=== PATIENT | female | born 1995 | race Caucasian/White ===

== ENCOUNTER 2020-05-06 21:13 | Outpatient (CLI) | payer BC ==
[2020-05-06 21:22] VITALS: BP 125/84; PULSE 82; RESP 16; TEMP 96.9
[2020-05-06 21:32] LABS: Appearance,Urine Clear (Clear); Bacteria,Urine Occasional /hpf; Bilirubin,Urine Negative (Negative); Blood,Urine Small (Negative); Color,Urine Colorless; Glucose,Urine (UA) Negative (Negative); Ketones,Urine Negative (Negative); Leukocyte Esterase,Urine Negative (Negative); Nitrite,Urine Negative (Negative); Protein,Urine Negative (Negative); RBC,Urine <1 /hpf (0-5); Specific Gravity,Urine 1.004 (1.001-1.035); Urobilinogen,Urine <2.0 mg/dL (<2.0); WBC,Urine 1 /hpf (0-5)
== END 2020-05-06 21:55 | disposition home or self-care (01) ==
LOC: FBPOP 21:13
PROVIDERS: ATTEND Obstetrics & Gynecology
DX: O99.891 Other specified diseases and conditions complicating pregnancy (principal); Z3A.21 21 weeks gestation of pregnancy
CPT/HCPCS: 81001; 99213

== ENCOUNTER 2020-09-08 06:00 | Inpatient (IN) | payer BC ==
[2020-09-08] MEDS ORDERED: DINOPROSTONE 10 MG INSERT.ER VAGINAL ONE (16:22)
[2020-09-08] MEDS ORDERED: BUTORPHANOL 1 MG/ML 1 ML VIAL IV PRN (16:22)
--- NOTE | 2020-09-08 17:12 | P.HPOB ---
History of Present Illness H&P Date: 09/08/20 Chief Complaint: Requested induction of labor. This patient is a pleasant 24-year-old 1 para 0 female estimated date of confinement 09/10/2020 estimated gestational age 39-5/7 weeks who presents to labor and delivery for requested induction of labor. Patient's care has been uncomplicated, with the exception of COVID at 8 weeks . Patient's cervix is unfavorable and therefore proceed with Cervidil placement. Review of Systems Genitourinary: Reports Menstruation: Reports amenorrhea Past Medical History Past Medical History: No Reported History Additional Past Medical History / Comment(s): IBS History of Any Multi-Drug Resistant Organisms: None Reported Past Surgical History: No Surgical Hx Reported Additional Past Surgical History / Comment(s): [place] teeth Past Anesthesia/Blood Transfusion Reactions: No Reported Reaction Past Psychological History: No Psychological Hx Reported Smoking Status: Never smoker Past Drug Use History: None Reported - Past Family History Mother Family Medical History: No Reported History Medications and Allergies Home Medications Medication Instructions Recorded Confirmed Type Pnv No.95/Ferrous Fum/Folic AC 1 tab PO DAILY 05/06/20 09/08/20 History [ Multivitamin Tablet] Allergies Allergy/AdvReac Type Severity Reaction Status Date / Time No Known Allergies Allergy Verified 09/08/20 16:22 Exam Vital Signs Temp Pulse Resp BP Pulse Ox 09/08/20 16:47 96.2 F L 91 16 137/93 100 09/08/20 16:22 96.2 F L 91 16 137/93 100 Intake and Output 09/08/20 09/08/20 09/08/20 06:59 14:59 22:59 Other: Weight 83.007 kg - OBG Physical Exam Abdomen: bowel sounds normal, no diffuse tenderness, no bruit present, no guarding noted, no hepatomegaly, no splenomegaly, no mass Vulva: both: normal Vagina: normal moisture, no discharge Cervix: no lesion (Cervix is fingertip and 50% effaced -1 station), no discharge Uterus: enlarged (Fundal height 38 cm) Results blood work shows she is O positive, rubella immune, RPR nonreactive, HIV is nonreactive, hepatitis B is negative, Glucola was normal, group B strep was negative, anatomy ultrasound was normal. Most recent growth ultrasound showed the infant to have abnormal growth. Assessment and Plan Assessment: This is a pleasant 24-year-old 1 para 0 female 39-5/7 weeks gestation admitted to labor and delivery for requested induction of labor. Plan is two- stage induction of labor and anticipate vaginal delivery. (1) 39 weeks gestation of Current Visit: Yes Status: Acute Code(s): Z3A.39 - 39 WEEKS GESTATION OF SNOMED Code(s): 24154566 (2) Elective induction of labor planned Current Visit: Yes Status: Acute Code(s): ACE2692 - SNOMED Code(s): 743030131
[2020-09-09] MEDS ORDERED: OXYTOCIN 30 UNITS/500 ML NS 30 UNIT in SALINE 1 500ML.BAG IV SCH ×2 (04:46→14:35)
[2020-09-09] MEDS ORDERED: CARBOPROST TROMETHAMINE 250 MCG/ML 1 ML AMP IM PRN (04:46)
[2020-09-09] MEDS ORDERED: LIDOCAINE 0.5% (PF) 5 MG/ML (50 ML SDV) SQ PRN (04:46)
[2020-09-09] MEDS ORDERED: METHYLERGONOVINE 0.2 MG/ML 1 ML AMP IM PRN (04:46)
[2020-09-09] MEDS ORDERED: TERBUTALINE 1 MG/ML VIAL SQ PRN (04:46)
[2020-09-09] MEDS ORDERED: OXYTOCIN 10 UNIT/ML 1 ML VIAL IM PRN (04:46)
[2020-09-09] MEDS: LACTATED RINGERS 1,000 ML IV SCH ×2 (05:02→20:39)
[2020-09-09 05:35] LABS: Basophils # (A) 0.1 k/uL (0-0.2); Basophils % (A) 0 %; Eosinophils # (A) 0.2 k/uL (0-0.7); Eosinophils % (A) 1 %; HCT 40.2 % (34.0-46.0); Lymphocytes # (A) 4.5 k/uL (1.0-4.8); Lymphocytes % (A) 29 %; MCH 32.5 pg (25.0-35.0); MCHC 34.8 g/dL (31.0-37.0); MCV 93.3 fL (80.0-100.0); Monocytes # (A) 0.6 k/uL (0-1.0); Monocytes % (A) 4 %; Neutrophils # (A) 10.3 k/uL (1.3-7.7); Neutrophils % (A) 65 %; Platelet Count 328 k/uL (150-450); RBC 4.31 m/uL (3.80-5.40); RDW 12.6 % (11.5-15.5); WBC 15.9 k/uL (3.8-10.6)
[2020-09-09 08:37] LABS: Glucose,Whole Blood 83 mg/dL (75-99)
[2020-09-09] MEDS ORDERED: ROPIVACAINE 5MG/ML 20ML VIAL ONE (09:34)
[2020-09-09] MEDS ORDERED: SODIUM CHLORIDE 0.9% 100 ML BAG ONE (09:34)
[2020-09-09] MEDS ORDERED: fentaNYL (PF) 50 MCG/ML 5 ML AMP ONE (09:34)
[2020-09-09] MEDS ORDERED: SIMETHICONE 80 MG CHEWABLE PO PRN (14:35)
[2020-09-09] MEDS ORDERED: diphenhydrAMINE 25 MG CAP PO PRN (14:35)
[2020-09-09] MEDS ORDERED: BENZOCAINE/MENTHOL SPRAY 1 GM/SPRAY AEROSOL TOPICAL PRN (14:35)
[2020-09-09] MEDS ORDERED: diphenhydrAMINE 50 MG/ML 1 ML VIAL IVP PRN (14:35)
[2020-09-09] MEDS ORDERED: LANOLIN CREAM 5 GM TUBE TOPICAL PRN (14:35)
[2020-09-09] MEDS ORDERED: ZOLPIDEM 5 MG TAB PO PRN (14:35)
[2020-09-09] MEDS ORDERED: bisacodyL 10 MG SUPP RECTAL PRN (14:35)
[2020-09-09] MEDS ORDERED: SENNOSIDES-DOCUSATE SODIUM 1 EACH TAB PO PRN (14:35)
[2020-09-09] MEDS ORDERED: HYDROCORTISONE 2.5% RECTAL CREAM 30 GM TUBE RECTAL PRN (14:35)
[2020-09-09] MEDS: IBUPROFEN 600 MG TAB PO PRN ×2 (16:09→22:13)
--- NOTE | 2020-09-09 18:17 | P.PROBDLV ---
Vaginal Delivery Note - . Vaginal Delivery Note: Vital vaginal delivery viable female Apgars 8 and 9 delivery time is 1356 hrs. Please see dictated H&P for intimate details of this patient's admission. Brief summary this pleasant 24-year-old 1 para 0 female estimated gestational age 39-5/7 weeks admitted last evening for Cervidil placement for induction of labor. Cervidil is placed this morning she is 2 cm dilated. She is artificial rupture membranes for clear fluid. Labor is induced with Pitocin. Patient's labor progresses quickly and she does get an epidural for pain control. Patient gets to complete pushes the head to the perineum. Posterior perineum is supported we have controlled delivery of the infant's head over the intact perineum. Mouth and nares are bulb suctioned. There is no evidence of nuchal cord. With gentle downward traction within delivery the anterior and posterior shoulder and rest this 's body. This is a vigorous viable female Apgars 8 and 9 delivery time is 1356 hrs. After delivery of the infant the is late on the mother's abdomen. After the cord is then pulsating is doubly clamped and cut.'s to be trivascular. The placenta is then spontaneously delivered intact. Estimated blood loss approximately 300 mL. Inspection of the perineum shows second-degree laceration which is repaired with 3-0 Vicryl in the usual fashion. Excellent reapproximation is noted. All counts are correct 3. There are no complications. and mother are stable delivery room.
[2020-09-09] MEDS: ACETAMINOPHEN TAB 325 MG TAB PO PRN (19:40)
[2020-09-10] MEDS: ACETAMINOPHEN TAB 325 MG TAB PO PRN (00:49)
[2020-09-10] MEDS: IBUPROFEN 600 MG TAB PO PRN ×2 (04:39→13:58)
--- NOTE | 2020-09-10 06:02 | P.PNOBGVD ---
Subjective - Subjective Patient reports: Reports appetite normal, Reports voiding normally, Reports pain well controlled, Reports ambulating normally : doing well Objective - Latest Vital Signs Latest vital signs: Vital Signs Temp Pulse Resp BP Pulse Ox 09/10/20 00:00 98.4 F 79 18 94/55 97 09/09/20 20:31 91 18 123/69 98 09/09/20 16:15 82 16 117/67 09/09/20 15:45 98 F 81 16 115/58 09/09/20 15:36 76 16 09/09/20 15:15 76 16 116/57 09/09/20 15:00 82 16 113/58 09/09/20 14:45 113 H 16 90/53 09/09/20 14:30 88 16 121/70 09/09/20 14:15 98 F 74 16 Intake and Output 09/09/20 09/09/20 09/10/20 14:59 22:59 06:59 Intake Total 2300 695 Output Total 200 200 Balance 2100 495 Intake: IV 2300 695 Output: Urine 200 200 Other: # Voids 1 1 1 - Exam Lungs: bilateral: normal Chest: Normal S1, Normal S2 Extremities: Present: normal Abdomen: Present: normal appearance, soft Uterus: Present: normal, firm Assessment and Plan Assessment: day #1. Patient is resting without new complaints wishes to go home. Vital signs are stable she's afebrile. Uterus is firm nontender and she is having normal lochia. I impression this is a normal course. Plan is felt to be stable for discharge home later today. (1) 39 weeks gestation of Current Visit: Yes Status: Acute Code(s): Z3A.39 - 39 WEEKS GESTATION OF SNOMED Code(s): 77832632 (2) Elective induction of labor planned Current Visit: Yes Status: Acute Code(s): XSF1709 - SNOMED Code(s): 968670031
--- NOTE | 2020-09-10 06:11 | P.DS ---
Providers Date of admission: 09/08/20 16:20 Expected date of discharge: 09/10/20 Attending physician: Perico Platt Primary care physician: Angelique Oliver [facility] - Discharge Diagnosis(es) (1) 39 weeks gestation of Current Visit: Yes Status: Acute (2) Elective induction of labor planned Current Visit: Yes Status: Acute Hospital Course: Please see dictated H&P for intimate details of this patient's admission. Brief summary is a pleasant 24-year-old 1 para 0 female 39-5/7 weeks gestation admitted to labor and delivery for induction of labor. Patient is admitted she is uncomplicated induction of labor quickly goes on to have a vaginal delivery viable female . Please see dictated delivery note. day #1 patient's feeling well wishes to go home. Patient's felt be stable for discharge home follow up with me in 6 weeks. Procedures: Two-stage induction of labor and normal vaginal delivery Patient Condition at Discharge: Good Plan - Discharge Summary New Discharge Prescriptions: New Ibuprofen [Motrin] 600 mg PO Q6HR PRN #30 tab PRN Reason: Pain No Action Pnv No.95/Ferrous Fum/Folic AC [ Multivitamin Tablet] 1 tab PO DAILY Discharge Medication List Pnv No.95/Ferrous Fum/Folic AC [ Multivitamin Tablet] 1 tab PO DAILY 05/06/20 [History] Ibuprofen [Motrin] 600 mg PO Q6HR PRN #30 tab 09/10/20 [Rx] Follow up Appointment(s)/Referral(s): Perico Platt MD [STAFF PHYSICIAN] - 10/20/20 10:15 am Patient Instructions/Handouts: Vaginal Delivery (DC) Activity/Diet/Wound Care/Special Instructions: No intercourse or anything per vagina for 6 weeks. Please call if any fever, chills, excessive vaginal bleeding, and/or abdominal pain. Discharge Disposition: HOME SELF-CARE
[2020-09-10 08:23] VITALS: BP 111/75; PULSE 88; RESP 16; TEMP 98.3
== END 2020-09-10 14:40 | disposition home or self-care (01) | DRG 807 ==
LOC: 4FBP 16:20
PROVIDERS: ADMIT Obstetrics & Gynecology; ATTEND Obstetrics & Gynecology
PROC: 10E0XZZ Delivery of Products of Conception, External Approach (ICD-10-PCS; principal; 2020-09-09)
PROC: 0KQM0ZZ Repair Perineum Muscle, Open Approach (ICD-10-PCS; 2020-09-09)
PROC: 3E033VJ Introduction of Other Hormone into Peripheral Vein, Percutaneous Approach (ICD-10-PCS; 2020-09-09)
DX: O70.1 Second degree perineal laceration during delivery (principal); Z37.0 Single live birth; Z3A.39 39 weeks gestation of pregnancy
CPT/HCPCS: 85025; 86850; 86900; 86901

== ENCOUNTER 2022-06-02 16:51 | Outpatient (CLI) | payer BC ==
[2022-06-02 17:53] LABS: Basophils % (A) 0 %; Eosinophils # (A) 0.1 k/uL (0-0.7); Eosinophils % (A) 1 %; HCT 36.7 % (34.0-46.0); HGB 12.7 gm/dL (11.4-16.0); Lymphocytes # (A) 3.1 k/uL (1.0-4.8); Lymphocytes % (A) 23 %; MCH 31.2 pg (25.0-35.0); MCHC 34.5 g/dL (31.0-37.0); MCV 90.4 fL (80.0-100.0); Mean Platelet Volume 8.5; Monocytes # (A) 0.5 k/uL (0-1.0); Monocytes % (A) 4 %; Neutrophils # (A) 9.3 k/uL (1.3-7.7); Neutrophils % (A) 70 %; Platelet Count 208 k/uL (150-450); RBC 4.07 m/uL (3.80-5.40); RDW 12.9 % (11.5-15.5); WBC 13.3 k/uL (3.8-10.6)
[2022-06-02 18:14] LABS: Appearance,Urine Clear (Clear); Bilirubin,Urine Negative (Negative); Blood,Urine Negative (Negative); Color,Urine Light Yellow; Glucose,Urine (UA) Negative (Negative); Ketones,Urine Negative (Negative); Leukocyte Esterase,Urine Negative (Negative); Nitrite,Urine Negative (Negative); Protein,Urine Negative (Negative); Specific Gravity,Urine 1.006 (1.001-1.035); Urobilinogen,Urine <2.0 mg/dL (<2.0)
[2022-06-02 18:21] VITALS: BP 126/82; PULSE 82; RESP 16; TEMP 97.4
[2022-06-02 18:22] LABS: ALT 16 U/L (4-34); AST 23 U/L (14-36); African American GFR (CKD) >90 (>60 ml/min/1.73 sqM); Blood Urea Nitrogen 14 mg/dL (7-17); LDH 206 U/L (120-246); Non-African American GFR(CKD) >90 (>60 ml/min/1.73 sqM); Uric Acid 3.4 mg/dL (3.7-7.4)
[2022-06-02 18:33] LABS: Creatinine,Urine Random 25.1 mg/dL; Protein/Creatinine Ratio,Urine 0.637
[2022-06-02 18:43] LABS: Creatinine,Urine Random 24.9 mg/dL
--- NOTE | 2022-06-03 06:05 | P.MSEPDOC ---
Presenting Problems - Arrival Data Date of Arrival on Unit: 06/02/22 Time of Arrival on Unit: 16:51 Mode of Transport: Ambulatory - Complaint OB-Reason for Admission/Chief Complaint: PIH Medical History - Information : 2 Para: 1 Term: 1 : 0 Abortions: Spontaneous or Elective: 0 Number of Living Children: 1 - Gestational Age Gestational Age by ISMAEL (wks/days): 39 Weeks and 3 Days Review of Systems - Review of Systems Constitutional: No problems Breast: No problems ENT: No problems Cardiovascular: No problems Respiratory: No problems Gastrointestinal: No problems Genitourinary: No problems Musculoskeletal: No problems Neurological: No problems Skin: No problems Vital Signs - Temperature Temperature: 97.4 F Temperature Source: Temporal Artery Scan - Pulse Right Sitting Pulse Rate: 82 Pulse Assessment Method: Automatic Cuff - Respirations Respiratory Rate: 16 Oxygen Delivery Method: Room Air O2 Sat by Pulse Oximetry: 98 - Blood Pressure Right Arm Blood Pressure: 126/82 Blood Pressure Mean: 96 Blood Pressure Source: Automatic Cuff Medical Screen Scoring - Uterine Contractions Frequency From (mins): 4 Frequency To (mins): 5 Duration From (seconds): 60 Duration To (seconds): 70 Intensity: Mild Resting: Soft to palpation - Assessment - Baby A Baseline FHR: 120 Heart Rate - NICHD Category: Category I (Normal) NST: Reactive Physician Notification - Physician Notified Physician Notified Date: 06/02/22 Physician Notified Time: 17:30 Physician: Perico Platt New Order Received: Yes (d/c home) Maternal Triage Index - Non-Urgent/Priority 4 Non-Urgent Priority 4: Yes Criteria Met for Priority 4: reactive nst, bps wnl Disposition - Disposition OB Disposition: Discharge to home, Written follow up instructions reviewed Discharge Date: 06/02/22 Discharge Time: 18:05 I agree with the RN Medical Screening Exam: Yes Case reviewed; plan agreed upon as documented in EMR&OBIX.: Yes Diagnosis: RELATED CONDITIONS, UNSPECIFIED, THIRD TRIMESTER
== END 2022-06-02 18:05 | disposition home or self-care (01) ==
LOC: FBPOP 16:51
PROVIDERS: ATTEND Obstetrics & Gynecology
DX: O13.3 Gestational [pregnancy-induced] hypertension without significant proteinuria, third trimester (principal); Z3A.39 39 weeks gestation of pregnancy
CPT/HCPCS: 59025; 81003; 82565; 82570; 83615; 84156; 84450; 84460; 84520; 84550; 85025

== ENCOUNTER 2022-06-07 05:38 | Inpatient (IN) | payer BC ==
--- NOTE | 2022-06-06 07:34 | P.HPOB ---
History of Present Illness H&P Date: 06/06/22 Chief Complaint: Postdates induction This patient is a pleasant 26-year-old 2 para 1 female estimated date of confinement 06/06/2022 estimated gestational age 40 and one sevenths weeks who presents to labor and delivery for requested induction of labor. Patient's pr enatal care has been uncomplicated. Patient lives a distance away and does have a history of fast labors. Patient now presents for delivery. Review of Systems Genitourinary: Reports Menstruation: Reports amenorrhea Past Medical History Past Medical History: No Reported History Additional Past Medical History / Comment(s): IBS; patient has a previous term vaginal delivery baby girl History of Any Multi-Drug Resistant Organisms: None Reported Past Surgical History: No Surgical Hx Reported Additional Past Surgical History / Comment(s): [place] teeth Past Anesthesia/Blood Transfusion Reactions: No Reported Reaction Past Psychological History: No Psychological Hx Reported Smoking Status: Never smoker Past Alcohol Use History: None Reported Past Drug Use History: None Reported - Past Family History Mother Family Medical History: No Reported History Medications and Allergies Home Medications Medication Instructions Recorded Confirmed Type Pnv No.95/Ferrous Fum/Folic AC 1 tab PO DAILY 05/06/20 06/02/22 History [ Multivitamin Tablet] Allergies Allergy/AdvReac Type Severity Reaction Status Date / Time No Known Allergies Allergy Verified 06/02/22 16:57 Exam - OBG Physical Exam Abdomen: bowel sounds normal, no diffuse tenderness, no bruit present, no guarding noted, no hepatomegaly, no splenomegaly, no mass Vulva: both: normal Vagina: normal moisture, no discharge Cervix: no lesion (Cervix and office is 2 cm and soft), no discharge Uterus: enlarged (Fundal height in the office was 38 cm) Results labs show she is O positive, rubella immune, RPR nonreactive, hepatitis B and C were negative, HIV is nonreactive, group B strep was negative, Glucola was 148 with a normal three-hour gtt., most recent ultrasound showed normal growth 6 lbs. 5 oz. Assessment and Plan Assessment: This is a pleasant 26-year-old 2 para 1 female 40 and one sevenths weeks gestation who presents to labor and delivery for requested induction of labor. Plan is induction of labor and anticipate vaginal delivery. (1) Postmaturity , 40-42 weeks gestation Status: Acute Code(s): O48.0 - POST-TERM SNOMED Code(s): 69558881120666 (2) Elective induction of labor planned Status: Acute Code(s): CGA3982 - SNOMED Code(s): 286344709
[2022-06-07] MEDS ORDERED: METHYLERGONOVINE 0.2 MG/ML 1 ML AMP IM PRN (05:56)
[2022-06-07] MEDS ORDERED: CARBOPROST TROMETHAMINE 250 MCG/ML 1 ML AMP IM PRN (05:56)
[2022-06-07] MEDS ORDERED: TRANEXAMIC ACID IN NACL,ISO-OS 1,000 MG in EMPTY BAG 1 BAG IV PRN (05:56)
[2022-06-07] MEDS ORDERED: TERBUTALINE 1 MG/ML VIAL SQ PRN (05:56)
[2022-06-07] MEDS ORDERED: LACTATED RINGERS 1,000 ML IV SCH (05:56)
[2022-06-07] MEDS ORDERED: OXYTOCIN 30 UNITS/500 ML NS 30 UNIT in SALINE 1 500ML.BAG IV SCH ×2 (05:56→12:45)
[2022-06-07] MEDS ORDERED: OXYTOCIN 10 UNIT/ML 1 ML VIAL IM PRN (05:56)
[2022-06-07] MEDS ORDERED: LIDOCAINE 0.5% (PF) 5 MG/ML (50 ML SDV) SQ PRN (05:56)
[2022-06-07] MEDS ORDERED: miSOPROStoL 200 MCG TAB PO PRN (05:56)
[2022-06-07 06:19] LABS: Basophils # (A) 0.1 k/uL (0-0.2); Basophils % (A) 0 %; Eosinophils # (A) 0.1 k/uL (0-0.7); Eosinophils % (A) 1 %; HGB 13.2 gm/dL (11.4-16.0); Lymphocytes # (A) 3.5 k/uL (1.0-4.8); Lymphocytes % (A) 28 %; MCH 30.3 pg (25.0-35.0); MCHC 33.1 g/dL (31.0-37.0); MCV 91.8 fL (80.0-100.0); Mean Platelet Volume 7.9; Monocytes # (A) 0.6 k/uL (0-1.0); Monocytes % (A) 4 %; Neutrophils % (A) 65 %; Platelet Count 218 k/uL (150-450); RBC 4.36 m/uL (3.80-5.40); RDW 12.7 % (11.5-15.5); WBC 12.4 k/uL (3.8-10.6)
[2022-06-07] MEDS ORDERED: ZOLPIDEM 5 MG TAB PO PRN (12:44)
[2022-06-07] MEDS ORDERED: diphenhydrAMINE 50 MG/ML 1 ML VIAL IVP PRN (12:44)
[2022-06-07] MEDS ORDERED: bisacodyL 10 MG SUPP RECTAL PRN (12:44)
[2022-06-07] MEDS ORDERED: ACETAMINOPHEN TAB 325 MG TAB PO PRN (12:44)
[2022-06-07] MEDS ORDERED: diphenhydrAMINE 25 MG CAP PO PRN (12:44)
[2022-06-07] MEDS ORDERED: BENZOCAINE/MENTHOL SPRAY 1 GM/SPRAY AEROSOL TOPICAL PRN (12:44)
[2022-06-07] MEDS ORDERED: SIMETHICONE 80 MG CHEWABLE PO PRN (12:44)
[2022-06-07] MEDS ORDERED: HYDROCORTISONE 2.5% RECTAL CREAM 30 GM TUBE RECTAL PRN (12:44)
[2022-06-07] MEDS ORDERED: LANOLIN CREAM 5 GM TUBE TOPICAL PRN (12:44)
--- NOTE | 2022-06-07 12:48 | P.PROBDLV ---
Vaginal Delivery Note - . Vaginal Delivery Note: Normal vaginal delivery viable male infant Apgars 8 and 9 delivery time is 1225 hrs. Please see dictated H&P for intimate details of this patient's admission. In brief summary this is a pleasant 26-year-old 2 para 1 female 40 and one sevenths weeks gestation is admitted to labor and delivery for requested postdates induction of labor. On admission patient is 2 cm dilated and has artificial rupture membranes for clear fluid. Labor is induced with Pitocin per protocol. Labor progresses and about 5-6 cm dilated she does request nitrous oxide for pain relief. Patient's labor progresses quickly and she does get complete. She pushes the head to the perineum and the posterior perineum is supported. We have controlled delivery of the 's head over the intact perineum. Mouth and nares are bulb suctioned and there is no evidence of a nuchal cord. is straight occiput anterior presentation. With gentle downward traction, we then have deliver the anterior and posterior shoulder and rest this 's body. Of note she did have a hand presenting at the time of delivery of the infant's head. This is a vigorous viable male infant Apgars are 8 and 9 delivery time was 1225 hrs. After delivery of the the is laid on the mother's abdomen. After the cord is done pulsating is doubly clamped and cut and appears to be trivascular. The placenta is then spontaneously delivered intact. Estimated blood loss is approximately 200 mL. Inspection of perineum shows a second-degree laceration which is repaired with 3-0 Vicryl in the usual fashion. Excellent reapproximation is noted. There is also some small bilateral periurethral lacerations do not require repair. and mother are stable delivery room. No complications. All counts correct 3.
[2022-06-07] MEDS: IBUPROFEN 600 MG TAB PO PRN ×2 (13:15→22:13)
[2022-06-07] MEDS: SENNOSIDES-DOCUSATE SODIUM 1 EACH TAB PO SCH (20:16)
[2022-06-07 22:17] VITALS: RESP 16
--- NOTE | 2022-06-08 06:58 | P.PNOBGVD ---
Subjective - Subjective Patient reports: Reports appetite normal, Reports voiding normally, Reports pain well controlled, Reports ambulating normally : doing well Objective - Latest Vital Signs Latest vital signs: Vital Signs Temp Pulse Resp BP Pulse Ox 06/08/22 04:00 98 F 94 16 120/80 97 06/08/22 00:00 98.2 F 91 16 116/80 06/07/22 20:00 98.2 F 80 16 126/86 96 06/07/22 17:00 98.2 F 92 15 105/66 06/07/22 15:00 97.3 F L 75 15 133/89 06/07/22 14:30 67 15 119/79 06/07/22 14:00 67 16 126/90 06/07/22 13:45 63 16 133/89 06/07/22 13:30 69 16 136/90 06/07/22 13:15 73 16 136/88 06/07/22 13:00 96.1 F L 77 15 128/88 06/07/22 07:20 97.1 F L 71 15 120/72 Intake and Output 06/07/22 06/07/22 06/08/22 14:59 22:59 06:59 Intake Total 500.000 Output Total 300 Balance 500.000 -300 Intake: Intake, IV Titration 500.000 Amount Oxytocin 30 Units/500 ml 500.000 Ns 30 unit In Saline 1 500ml.bag @ Per Protocol IV .Q0M [facility] Rx#:[id number] Output: Output, Quantitative 300 Blood Loss Other: Voiding Method Toilet # Voids 1 2 Weight 83.915 kg - Exam Lungs: bilateral: normal Chest: Normal S1, Normal S2 Extremities: Present: normal Abdomen: Present: normal appearance, soft Uterus: Present: normal, firm Assessment and Plan Assessment: day #1. Patient is resting without complaints and wishes to go home. Vital signs are stable she's afebrile. Her uterus is firm nontender and she is having normal lochia. CBC is pending at time of this dictation. My impression this is a normal course. Plan is to continue routine care discharge home later today (1) Postmaturity , 40-42 weeks gestation Current Visit: No Status: Acute Code(s): O48.0 - POST-TERM SNOMED Code(s): 51486529180477 (2) Elective induction of labor planned Current Visit: No Status: Acute Code(s): [id number] - SNOMED Code(s): 160461937
--- NOTE | 2022-06-08 07:02 | P.DS ---
Providers Date of admission: 06/07/22 05:38 Expected date of discharge: 06/08/22 Attending physician: Perico Platt Primary care physician: Stated None - Discharge Diagnosis(es) (1) Postmaturity , 40-42 weeks gestation Current Visit: No Status: Acute (2) Elective induction of labor planned Current Visit: No Status: Acute Hospital Course: Please see dictated H&P for intimate details of this patient's admission. Brief summary this is a pleasant 26-year-old 2 para 1 female 40 and one sevenths weeks gestation who is admitted to labor and delivery for requested induction of labor due to postdates. Patient is admitted she is uncomplicated induction of labor quickly goes on have a vaginal delivery viable male . Please see dictated delivery note. day #1 patient without complaints wishes to go home. Patient's felt to be stable for discharge home follow up with me in 6 weeks. Procedures: Induction of labor and normal vaginal delivery Patient Condition at Discharge: Good Plan - Discharge Summary New Discharge Prescriptions: New Ibuprofen [Motrin] 600 mg PO Q6HR PRN #40 tab PRN Reason: Mild Pain (Scale 1 To 3) No Action Pnv No.95/Ferrous Fum/Folic AC [ Multivitamin Tablet] 1 tab PO DAILY Discharge Medication List Pnv No.95/Ferrous Fum/Folic AC [ Multivitamin Tablet] 1 tab PO DAILY 05/06/20 [History] Ibuprofen [Motrin] 600 mg PO Q6HR PRN #40 tab 06/08/22 [Rx] Follow up Appointment(s)/Referral(s): Perico Platt MD [STAFF PHYSICIAN] - 6 Weeks (Please see me for a visit on 07/19/2022 @10:30 Am) Patient Instructions/Handouts: Vaginal Delivery (DC) Activity/Diet/Wound Care/Special Instructions: No intercourse or anything per vagina for 6 weeks. Please call if any fever, chills, excessive vaginal bleeding, and/or abdominal pain. Discharge Disposition: HOME SELF-CARE
[2022-06-08 07:47] LABS: Basophils % (A) 0 %; Eosinophils # (A) 0.1 k/uL (0-0.7); Eosinophils % (A) 1 %; HCT 35.1 % (34.0-46.0); HGB 11.5 gm/dL (11.4-16.0); Lymphocytes # (A) 2.8 k/uL (1.0-4.8); Lymphocytes % (A) 19 %; MCH 30.2 pg (25.0-35.0); MCHC 32.8 g/dL (31.0-37.0); MCV 92.2 fL (80.0-100.0); Mean Platelet Volume 8.2; Monocytes # (A) 0.5 k/uL (0-1.0); Monocytes % (A) 4 %; Neutrophils % (A) 75 %; Platelet Count 202 k/uL (150-450); RBC 3.81 m/uL (3.80-5.40); WBC 14.6 k/uL (3.8-10.6)
[2022-06-08] MEDS: IBUPROFEN 600 MG TAB PO PRN (07:57)
[2022-06-08 09:33] VITALS: BP 121/79; PULSE 91; TEMP 98.7
[2022-06-08] MEDS: SENNOSIDES-DOCUSATE SODIUM 1 EACH TAB PO SCH (09:34)
== END 2022-06-08 12:00 | disposition home or self-care (01) | DRG 807 ==
LOC: 4FBP 05:38
PROVIDERS: ADMIT Obstetrics & Gynecology; ATTEND Obstetrics & Gynecology
PROC: 0KQM0ZZ Repair Perineum Muscle, Open Approach (ICD-10-PCS; principal; 2022-06-07)
PROC: 10907ZC Drainage of Amniotic Fluid, Therapeutic from Products of Conception, Via Natural or Artificial Opening (ICD-10-PCS; principal; 2022-06-07)
PROC: 10E0XZZ Delivery of Products of Conception, External Approach (ICD-10-PCS; principal; 2022-06-07)
PROC: 3E033VJ Introduction of Other Hormone into Peripheral Vein, Percutaneous Approach (ICD-10-PCS; principal; 2022-06-07)
DX: O48.0 Post-term pregnancy (principal); O70.1 Second degree perineal laceration during delivery; O71.82 Other specified trauma to perineum and vulva; O32.2XX0 Maternal care for transverse and oblique lie, not applicable or unspecified; O99.62 Diseases of the digestive system complicating childbirth; K58.9 Irritable bowel syndrome, unspecified; Z28.310 Unvaccinated for COVID-19; Z3A.40 40 weeks gestation of pregnancy; Z37.0 Single live birth
CPT/HCPCS: 85025; 86850; 86900; 86901